=== PATIENT | female | born 1995 | race Caucasian/White ===

== ENCOUNTER → 2016-12-22 | Outpatient (CLI) | payer OTHER ==
--- NOTE | 2016-12-22 12:20 | Diagnostic Imaging Report ---
Ultrasound of the buttocks area. INDICATION: Muscle atrophy. Findings: Area of depression in the left gluteal region is scanned with no definitive abnormality seen. There is slight heterogeneity in the gluteal muscles seen in this region. IMPRESSION: Slight nonspecific heterogeneity seen in the left gluteal muscles at the area of skin depression. Etiology is uncertain. Further evaluation with pelvic MRI is recommended. Dictated by: Dictated on workstation # [id number]
== END ==
LOC: RAD 10:44
PROVIDERS: ATTEND Family Medicine
DX: M62.58 Muscle wasting and atrophy, not elsewhere classified, other site (principal)
CPT/HCPCS: 76881